=== PATIENT | female | born 1985 | race Caucasian/White ===

== ENCOUNTER 2016-09-03 14:45 | Inpatient (IN) | payer SELFPAY ==
--- NOTE | 2016-09-03 14:55 | ERPHSYRPT ---
- History of Present Illness Time Seen by Provider: 09/03/16 14:47 Source: patient, EMS, old records, police Exam Limitations: clinical condition Physician History: patient found along side the road recently after being kicked out of the house by her mother; she smokes and is a known drug abuser; she took a handfull of pills ( Tylenol; Ibuprofen and strips of Suboxone- unknown number ) less then two hours ago; pusle ox good via EMS in route; no change when given narcan; patient awake throughout complaining of abdominal pain; some emesis with small amount of bright red blood; no hx of ulces; remains nauseated and some dry heaves; no loc; states she is suicidal and was trying to kill herself; can't give an exact time of ingestion. Denies being ; also while lying in grass was stung several times by unknown insect; no difficulty breathing or change in voice Timing/Duration: today, hour(s) (1-4 hours ago), sudden, worse Severity of Symptoms-Max: severe Severity of Symptoms-Current: moderate Context related to: parent (mother), living circumstances Suicidal thoughts: attempt, ingestion Associated Symptoms: angry, depressed, hallucinating (possbily ), suicidal ideation (still present) Previous symptoms: different symptoms Allergies/Adverse Reactions: penicillin Allergy (Verified 09/03/16 15:05) Hx Tetanus, Diphtheria Vaccination/Date Given: No Hx Influenza Vaccination/Date Given: No Hx Pneumococcal Vaccination/Date Given: No - Past Medical History Pertinent Past Medical History: Yes Neurological History: Other ENT History: Other (previous corneal abrasions related to contacts) Cardiac History: No Pertinent History Respiratory History: No Pertinent History Endocrine Medical History: No Pertinent History Musculoskeletal History: Other GI Medical History: Hepatitis (C) History: No Pertinent History Psycho-Social History: Depression, Other (poly drug abuse) Female Reproductive Disorders: No Pertinent History Other Medical History: HEP C,MRSA - Past Surgical History Past Surgical History: Yes Neuro Surgical History: No Pertinent History Cardiac: No Pertinent History Respiratory: No Pertinent History Gastrointestinal: No Pertinent History Genitourinary: Other Musculoskeletal: Orthopedic Surgery Female Surgical History: No Pertinent History Other Surgical History: BACK SURG - Social History Smoking Status: Current some day smoker How long have you smoked: 15 Exposure to second hand smoke: Yes Alcohol Use: Socially Drug Use: narcotics Patient Lives Alone: Yes Significant Family History: no pertinent family hx - Female History Hx Last Menstrual Period: 09/03/16 normal Hx Now: No - Review of Systems Constitutional: No Symptoms Eyes: No Symptoms Ears, Nose, & Throat: No Symptoms Respiratory: No Cough, No Dyspnea, No Wheezing Cardiac: No Chest Pain, No Palpitations, No Syncope Abdominal/Gastrointestinal: Abdominal Pain, Nausea, Vomiting, Hematemesis ( small amount today), No Diarrhea, No Constipation, No Melena Genitourinary Symptoms: No Symptoms Musculoskeletal: No Symptoms Skin: Rash (right side - multiple insect bites) Neurological: No Headache, No Seizure, No Vertigo Psychological: Drug Abuse, Depression, Suicidal Ideations Endocrine: No Symptoms Hematologic/Lymphatic: No Symptoms Immunological/Allergic: No Symptoms - Nursing Vital Signs Nursing Vital Signs: Initial Vital Signs Temperature 98.3 F 09/03/16 14:46 Pulse Rate 106 H 09/03/16 14:46 Respiratory Rate 16 09/03/16 14:46 Blood Pressure 140/76 09/03/16 14:46 O2 Sat by Pulse Oximetry 95 09/03/16 14:46 Pain Scale Pain Intensity 7 - Physical Exam General Appearance: moderate distress (abd pain with Nausea and dry heaves; ), anxiety, thin Eyes, Ears, Nose, Throat Exam: normal ENT inspection, TMs normal, pharynx normal , moist mucous membranes, other (normal voice) Neck Exam: normal inspection, non-tender, supple, full range of motion, No Kernig's, No meningismus, No JVD Respiratory Exam: normal breath sounds, lungs clear, airway intact, No chest tenderness, No respiratory distress, No rhonchi, No wheezing, No stridor Cardiovascular Exam: regular rate/rhythm, normal heart sounds, normal peripheral pulses, tachycardia, capillary refill <2 sec, No murmur Gastrointestinal/Abdominal Exam: soft, tenderness (mild epigastic), No normal bowel sounds (slightly hypeactive), No distention, No mass, No guarding, No pulsatile mass, No rebound, No organomegaly Extremities Exam: normal inspection, normal range of motion, evidence of injury (mild scattered old small bruises lower legs), No tenderness Peripheral Pulses: carotid (R): 4+, carotid (L): 4+, femoral (R): 4+, femoral (L ): 4+, dorsalis-pedis (R): 3+, dorsalis-pedis (L): 3+ Current Suicidality: other (over dosed on purpose) Neurological Exam: alert, database modeler II-XII nml as tested, oriented x 3, responds to pain, agitated, depressed affect Appearance: no memory impairment, disheveled, impaired insight Behavior/Eye Contact/Speech: alert & cooperative, normal speech, avoids eye contact, agitated, No good eye contact Thoughts/Hallucinations: no apparent hallucination Skin Exam: normal color, warm, dry, ecchymosis (old small numerous lower extremities), other (multiple insect bites right side and flank with local reactions only (6-8)), No rash, No petechiae, No cyanosis SpO2 Interpretation: normal SpO2: 98 Oxygen Delivery: Room Air - Course Nursing assessment & vital signs reviewed: Yes EKG Interpreted by Me: RATE (114), Sinus Tach, NORMAL AXIS, NORMAL INTERVALS, NORMAL QRS, NORMAL ST-T, Non-specific ST Changes Rhythm Strip: Rate (112), Sinus Tachycardia Ordered Tests: Active Orders 24 hr Category Date Time Status Up With Assistance ROUTINE Activity 09/03/16 15:58 Ordered Accucheck STAT Care 09/03/16 14:47 Active Admission/Status Order ROUTINE Care 09/03/16 15:58 Ordered Call Admit Doctor for Orders ON ADMISSION Care 09/03/16 15:59 Ordered Autopsy Pathologist STAT Care 09/03/16 14:47 Active Catheter-Alexandria Ashby STAT Care 09/03/16 14:57 Active Code Status Order ROUTINE Care 09/03/16 15:58 Ordered Consult Telemental Health ROUTINE Care 09/03/16 16:00 Ordered EKG-ER Only STAT Care 09/03/16 14:47 Active Fall Protocol ROUTINE Care 09/03/16 16:00 Ordered Gastric Tube Ins w/ Lavage STAT Care 09/03/16 14:49 Active IV Care Q6H Care 09/03/16 15:58 Ordered IV Insertion STAT Care 09/03/16 14:47 Active Neuro Checks Q2H Care 09/03/16 15:58 Ordered Psychiatric Evaluation STAT Care 09/03/16 14:47 Active Re-Check Vital Signs STAT Care 09/03/16 14:47 Active Bahman Hose, Apply ROUTINE Care 09/03/16 15:58 Ordered Telemetry ROUTINE Care 09/03/16 15:58 Ordered Weight,Daily 0600 Care 09/03/16 15:58 Ordered NPO Diet 09/03/16 15:59 Ordered ACETAMINOPHEN Stat Lab 09/03/16 14:50 Completed ACETAMINOPHEN Stat Lab 09/03/16 16:40 Ordered ACETAMINOPHEN Stat Lab 09/03/16 18:40 Ordered AMYLASE Stat Lab 09/03/16 14:50 Completed CBC W DIFF Stat Lab 09/03/16 14:50 Completed CMP Stat Lab 09/03/16 14:50 Completed ETHYL ALCOHOL Stat Lab 09/03/16 14:50 Completed HCG QUALITATIVE,SERUM Stat Lab 09/03/16 14:50 Completed LIPASE Stat Lab 09/03/16 14:50 Completed MAGNESIUM Stat Lab 09/03/16 14:50 Completed PROTIME WITH INR Stat Lab 09/03/16 14:50 Completed PTT Stat Lab 09/03/16 15:21 Completed SALICYLATE Stat Lab 09/03/16 14:50 Completed SALICYLATE Stat Lab 09/03/16 16:40 Ordered SALICYLATE Stat Lab 09/03/16 18:40 Ordered UA W/RFX UR CULTURE Stat Lab 09/03/16 14:47 Ordered Urine Triage Profile Stat Lab 09/03/16 14:47 Ordered Transfer Order Routine Transfer 09/03/16 15:57 Ordered Medication Summary Generic Name Dose Route Start Last Admin Trade Name Freq PRN Reason Stop Dose Admin Sodium Chloride 1,000 mls @ 100 mls/hr 09/03/16 15:00 09/03/16 15:00 Sodium Chloride 0.9% 1000 Ml IV 10/03/16 14:59 100 mls/hr .Q10H SHUKRI Administration Discontinued Medications Generic Name Dose Route Start Last Admin Trade Name Freq PRN Reason Stop Dose Admin Famotidine 20 mg 09/03/16 14:57 09/03/16 15:02 Pepcid 20 Mg Vial IV 09/03/16 14:58 20 mg STAT ONE Administration Famotidine Confirm 09/03/16 15:01 Pepcid 20 Mg Vial Administered 09/03/16 15:02 Dose 20 mg IV .STK-MED ONE Lidocaine HCl Confirm 09/03/16 15:13 Xylocaine 2% Uro-Jet Administered 09/03/16 15:14 Dose 200 mg .ROUTE .STK-MED ONE Ondansetron HCl 4 mg 09/03/16 14:58 09/03/16 15:02 Zofran 4 Mg/2 Ml Vial IV 09/03/16 14:59 4 mg STAT ONE Administration Ondansetron HCl Confirm 09/03/16 15:01 Zofran 4 Mg/2 Ml Vial Administered 09/03/16 15:02 Dose 4 mg .ROUTE .STK-MED ONE Lab/Rad Data: Laboratory Result Diagrams 09/03/16 14:50 09/03/16 14:50 Laboratory Results 09/03/16 09/03/16 09/03/16 Range/Units 15:30 15:21 14:50 WBC (4.0-10.5) K/mm3 RBC (4.1-5.4) M/mm3 Hgb (12.0-16.0) gm/dl Hct (35-47) % MCV (78-100) fl MCH (26-32) pg MCHC (32-36) g/dl RDW (11.5-14.0) % Plt Count (150-450) K/mm3 MPV (6-9.5) fl Gran % (36.0-66.0) % Lymphocytes % (24.0-44.0) % Monocytes % (0.0-12.0) % Eosinophils % (0.00-5.0) % Basophils % (0.0-0.4) % Basophils # (0-0.4) INR 1.04 (0.8-3.0) APTT 36.2 (25.3-37.0) SECONDS Sodium (136-145) mEq/L Potassium (3.5-5.1) mEq/L Chloride (98-107) mEq/L Carbon Dioxide (21-32) mEq/L Anion Gap (5-15) MEQ/L BUN (9-20) mg/dL Creatinine (0.55-1.30) mg/dl Estimated GFR ML/MIN Glucose (70-110) MG/DL Calcium (8.5-10.1) mg/dL Magnesium (1.8-2.4) mg/dL Total Bilirubin (0.2-1.0) mg/dL AST (15-37) U/L ALT (12-78) U/L Alkaline Phosphatase (46-116) U/L Serum Total Protein (6.4-8.2) gm/dL Albumin (3.4-5.0) g/dL Amylase (25-115) U/L Lipase (73-393) U/L Serum , Qual (Negative) Salicylates (2.8-20.0) mg/dl Urine Opiates Level NEG. (NEGATIVE) Ur Methadone NEG. (NEGATIVE) Acetaminophen (10-30) ug/ml Urine Barbiturates NEG. (NEGATIVE) Ur Phencyclidine (PCP) NEG. (NEGATIVE) Urine Amphetamine POS. (NEGATIVE) U Benzodiazepine Level NEG. (NEGATIVE) Urine Cocaine NEG. (NEGATIVE) Urine Marijuana (THC) NEG. (NEGATIVE) Ethyl Alcohol (0.00-0.01) % 09/03/16 09/03/16 09/03/16 Range/Units 14:50 14:50 14:50 WBC 8.5 (4.0-10.5) K/mm3 RBC 4.23 (4.1-5.4) M/mm3 Hgb 14.0 (12.0-16.0) gm/dl Hct 41.8 (35-47) % MCV 98.8 (78-100) fl MCH 33.1 H (26-32) pg MCHC 33.5 (32-36) g/dl RDW 12.9 (11.5-14.0) % Plt Count 258 (150-450) K/mm3 MPV 11.2 H (6-9.5) fl Gran % 64.4 (36.0-66.0) % Lymphocytes % 27.0 (24.0-44.0) % Monocytes % 7.4 (0.0-12.0) % Eosinophils % 1.1 (0.00-5.0) % Basophils % 0.1 (0.0-0.4) % Basophils # 0.01 (0-0.4) INR (0.8-3.0) APTT (25.3-37.0) SECONDS Sodium 141 (136-145) mEq/L Potassium 4.0 (3.5-5.1) mEq/L Chloride 105 (98-107) mEq/L Carbon Dioxide 24.8 (21-32) mEq/L Anion Gap 15.4 H (5-15) MEQ/L BUN 13 (9-20) mg/dL Creatinine 0.93 (0.55-1.30) mg/dl Estimated GFR > 60 ML/MIN Glucose 118 H (70-110) MG/DL Calcium 9.2 (8.5-10.1) mg/dL Magnesium 2.0 (1.8-2.4) mg/dL Total Bilirubin 0.60 (0.2-1.0) mg/dL AST 36 (15-37) U/L ALT 54 (12-78) U/L Alkaline Phosphatase 65 (46-116) U/L Serum Total Protein 7.8 (6.4-8.2) gm/dL Albumin 4.0 (3.4-5.0) g/dL Amylase 49 (25-115) U/L Lipase 83 (73-393) U/L Serum , Qual NEGATIVE (Negative) Salicylates 4.2 (2.8-20.0) mg/dl Urine Opiates Level (NEGATIVE) Ur Methadone (NEGATIVE) Acetaminophen 36.8 H (10-30) ug/ml Urine Barbiturates (NEGATIVE) Ur Phencyclidine (PCP) (NEGATIVE) Urine Amphetamine (NEGATIVE) U Benzodiazepine Level (NEGATIVE) Urine Cocaine (NEGATIVE) Urine Marijuana (THC) (NEGATIVE) Ethyl Alcohol < 0.010 (0.00-0.01) % reviewed - Progress Progress: improved (post meds), re-examined (after meds, cath and n/g) Progress Note: 09/03/16 15:06 IV started; VS monitored; ashby anchored; blood drawn; meds given; EKG sinus tach; labs pending; suicide precautions; given anti emetics and H2 blockers; will contact LMD for disposition and possible Psyche consult; labs pending; tox screen pending 09/03/16 15:39 patient N&V resolved; abd pain resolved; VS improving; patient more calm and cooperative; unable to pass and NG; some epistaxis resolved with ice and pressure; last emesis before NG was clear and no gross blood; pulse ox ok clotting studies ok; renal function ok; mikki and lip ok; Actmn level elevated at 36.8 but unsure of ingestion time so will repeat Acetmn and Salic levels in two and four hours to see if need treatmetn; ETOH neg; HCG and ua pending; Will consult LMD for disposition; 09/03/16 15:53 Dr Canseco consulted and will admit to ICU ; a Psyche consult will be obtained and Salic and Acetom levels will be repeated and determine if need treatment.VS improved; HCG negative Discussed with : Micaela (consulted adn will admit) Counseled pt/family regarding: drug and/or alcohol abuse, lab results, diagnosis , need for follow-up, smoking cessation - Departure Time of Disposition: 15:55 Departure Disposition: In-patient Admission (ICU) Clinical Impression: Suicidal overdose, Hepatitis C, Abdominal pain, Insect bite, Acetaminophen overdose Clinical Impression: (Ruled Out): Poisoning, acetophenetidin Condition: Serious Critical Care Time: Yes Critical Care Time(excluding separately billable procedures): 30-74 minutes Referrals: ESTER HONEYCUTT [Primary Care Provider] - FATOU CANSECO [ACTIVE STAFF] -
[2016-09-03] MEDS ORDERED: Pepcid 20 MG VIAL IV ONE ×2 (14:57→15:01)
[2016-09-03] MEDS ORDERED: Zofran 4 MG/2 ML VIAL IV ONE (14:58)
[2016-09-03] MEDS: Sodium Chloride 0.9% 1000 ML 1,000 ML IV SCH (15:00)
[2016-09-03] MEDS ORDERED: Zofran 4 MG/2 ML VIAL ONE (15:01)
[2016-09-03 15:03] LABS: BASOPHIL % 0.1 % (0.0-0.4); Eosinophil % 1.1 % (0.00-5.0); Granulocytes % 64.4 % (36.0-66.0); Mean Cell Volume 98.8 fl (78-100); Mean Corpuscular Hemoglobin 33.1 pg (26-32); Mean Platelet Volume 11.2 fl (6-9.5); Monocytes % 7.4 % (0.0-12.0); Platelet Count 258 K/mm3 (150-450); Red Blood Count 4.23 M/mm3 (4.1-5.4); Red Cell Distribution Width 12.9 % (11.5-14.0); White Blood Count 8.5 K/mm3 (4.0-10.5)
[2016-09-03] MEDS ORDERED: XYLOCAINE 2% Uro-Jet ONE (15:13)
[2016-09-03 15:25] LABS: INR 1.04 (0.8-3.0); PROTIME 11.7 SECONDS (9.95-12.35)
[2016-09-03 15:33] LABS: ALKALINE PHOSPHATASE 65 U/L (46-116); ANION GAP 15.4 MEQ/L (5-15); BLOOD UREA NITROGEN 13 mg/dL (9-20); CHLORIDE 105 mEq/L (98-107); Carbon Dioxide 24.8 mEq/L (21-32); ETHYL ALCOHOL < 0.010 % (0.00-0.01); Glucose 118 MG/DL (70-110); LIPASE 83 U/L (73-393); SGOT/AST 36 U/L (15-37); SGPT/ALT 54 U/L (12-78); SODIUM 141 mEq/L (136-145); Total Protein 7.8 gm/dL (6.4-8.2)
[2016-09-03 15:34] LABS: ACETAMINOPHEN 36.8 ug/ml (10-30)
[2016-09-03 16:22] LABS: Bilirubin SMALL (NEGATIVE); COMPLETE URINE MICROSCOPIC? YES; Collection Type VOID; Glucose NEGATIVE (NEGATIVE); Leukocyte Esterase TRACE (NEGATIVE); Mucus MODERATE /HPF (NEGATIVE)
[2016-09-03 16:23] LABS: ADD URINE CULTURE? YES (NO); Bacteria MANY /HPF (NEGATIVE); Epithelial Cells FEW /HPF (FEW)
[2016-09-03] MEDS ORDERED: DEXTROSE IV ONE ×2 (19:25→20:30)
[2016-09-03] MEDS ORDERED: ACETADOTE IV ONE ×2 (19:25→20:30)
[2016-09-03] MEDS ORDERED: WATER IV ONE ×2 (19:25→20:30)
[2016-09-03] MEDS ORDERED: Acetadote IV 200 MG/ML*** 0 MG in Dextrose 5%/Water IV Soln. 250 ML 250 ML IV ONE (19:25)
[2016-09-03] MEDS ORDERED: Dextrose 5%/Water IV Soln. 250 ML 250 ML IV ONE (19:26)
[2016-09-03] MEDS ORDERED: Acetadote IV 200 MG/ML IV ONE (19:27)
[2016-09-03] MEDS ORDERED: Dextrose 5%/Water IV Soln. 500 ML 500 ML IV ONE (19:28)
[2016-09-03] MEDS ORDERED: Dextrose 5%/Water IV Soln. 1000 ML 1,000 ML IV ONE (22:46)
[2016-09-04] MEDS ORDERED: DEXTROSE IV ONE (00:30)
[2016-09-04] MEDS ORDERED: WATER IV ONE (00:30)
[2016-09-04] MEDS ORDERED: ACETADOTE IV ONE (00:30)
[2016-09-04] MEDS: Sodium Chloride 0.9% 1000 ML 1,000 ML IV SCH ×2 (01:35→11:44)
[2016-09-04 07:29] LABS: Mean Cell Volume 100.3 fl (78-100); Mean Platelet Volume 11.1 fl (6-9.5); Platelet Count 177 K/mm3 (150-450); Red Blood Count 3.81 M/mm3 (4.1-5.4); White Blood Count 5.3 K/mm3 (4.0-10.5)
[2016-09-04 07:35] LABS: Mean Corpuscular Hemoglobin 33.5 pg (26-32)
--- NOTE | 2016-09-04 07:38 | HP ---
CHIEF COMPLAINT: Overdose of Tylenol and Suboxone. HISTORY OF PRESENT ILLNESS: The patient is a 31 year-old white female who apparently had gotten into an argument with her mother. She had gotten kicked out of her house. She is a known abuser of medications. She reports that she took a handful of Tylenol, ibuprofen and Suboxone. She reports the Suboxone belonged to somebody else but she was able to get a hold of them and took several of them as she wished to do herself harm. The patient was actually found along the side of a road and was brought in by EMS. She was given Narcan which was not much helpful initially in the emergency room. The patient was found to have elevated levels of Tylenol in her system and was brought into the hospital emergency room and subsequently admitted to the hospital for suicide watch and treatment of suspected Tylenol overdose. PAST MEDICAL/SURGICAL HISTORY: Otherwise significant for hepatitis C, depression. She reports that she had been seeing people at [facility] for a year previously but is not following them presently. She has history of back surgery and methicillin resistant staphylococcus aureus infections. She abuses narcotics. She smokes as well. PHYSICAL EXAMINATION: Reveals a thin, white female currently in no obvious distress and cooperative to examination and lucid at the present time. Also reporting that she currently does not feel like doing herself any harm. Her initial vital signs showed temperature 98.3F, pulse 106, respiratory rate 16, blood pressure 140/76. O2 saturations 95% on room air. HEENT: Normocephalic, atraumatic. Pupils equal round reactive to light. Extraocular movements intact. Oropharynx is dry. NECK: Supple without lymphadenopathy, thyromegaly or JVD. CHEST: Clear to auscultation with good air movement bilaterally. HEART: Regular rate and rhythm without murmurs, rubs or gallops. ABDOMEN: Soft, nontender, nondistended without hepatosplenomegaly or masses. EXTREMITIES: Without cyanosis, clubbing or edema. She does have IV's in both arms presently with the left more puffy and red. NEUROLOGIC: The patient is alert and oriented x3 and cooperative to exam. LAB DATA AND TESTS: In the emergency room showed international normalized ratio of 1.04. Metabolic panel with glucose 118, BUN 13, creatinine 0.93. Electrolytes were normal. Liver enzymes were normal. Acetaminophen level was 36.8 which is already above our laboratory values with therapeutic from 10 to 30. However it is unknown how long ago the patient had taken the Tylenol. Salicylate level is 4.2. ETOH negative. CBC was normal with hemoglobin 14.0, white blood cell count 8,500, PLT count 258,000. Urine drug screen was positive for amphetamines and negative for everything else. Urine HCG was negative. ASSESSMENT: A patient with polydrug overdose with acetaminophen, Suboxone and ibuprofen. She admitted drug abuse. The patient has been admitted for treatment of Tylenol overdose with the current protocol. She will be treated for the next 24 hours. She is not currently under emergency correction order but I am willing to sign off on that if she has any inclination of wanting to leave [facility]ENTER. The patient will have [facility] consultation prior to disposition of either going home or being admitted to inpatient facility once we are done with the protocol for overdose of acetaminophen. We will be monitoring her liver enzymes over the next 24 hours as well.
[2016-09-04 07:49] LABS: ALBUMIN 2.9 g/dL (3.4-5.0); ALKALINE PHOSPHATASE 48 U/L (46-116); ANION GAP 13.4 MEQ/L (5-15); BLOOD UREA NITROGEN 5 mg/dL (9-20); CHLORIDE 109 mEq/L (98-107); Carbon Dioxide 22.5 mEq/L (21-32); Glucose 100 MG/DL (70-110); Potassium 3.5 mEq/L (3.5-5.1); SGOT/AST 24 U/L (15-37); SGPT/ALT 22 U/L (12-78); SODIUM 141 mEq/L (136-145); Total Protein 6.1 gm/dL (6.4-8.2)
[2016-09-04 11:16] VITALS: O2SAT 99
[2016-09-04 13:30] LABS: Mean Cell Volume 100.6 fl (78-100); Mean Corpuscular Hemoglobin 33.7 pg (26-32); Mean Platelet Volume 11.6 fl (6-9.5); Platelet Count 184 K/mm3 (150-450); Red Blood Count 3.62 M/mm3 (4.1-5.4); White Blood Count 5.9 K/mm3 (4.0-10.5)
[2016-09-04 13:51] LABS: ALKALINE PHOSPHATASE 53 U/L (46-116); ANION GAP 13.3 MEQ/L (5-15); BLOOD UREA NITROGEN 5 mg/dL (9-20); CHLORIDE 110 mEq/L (98-107); Carbon Dioxide 23.4 mEq/L (21-32); Glucose 151 MG/DL (70-110); Potassium 3.6 mEq/L (3.5-5.1); SGOT/AST 23 U/L (15-37); SGPT/ALT 45 U/L (12-78); SODIUM 143 mEq/L (136-145); Total Protein 6.2 gm/dL (6.4-8.2)
[2016-09-04 13:53] LABS: ACETAMINOPHEN 2.1 ug/ml (10-30)
[2016-09-04 18:18] VITALS: BP 106/71; PULSE 80
== END 2016-09-04 20:25 | disposition home or self-care (01) | DRG 918 ==
LOC: ED 14:45 → ICU 16:45
PROVIDERS: ADMIT Family Medicine; ATTEND Family Medicine
DX: T39.1X1A Poisoning by 4-Aminophenol derivatives, accidental (unintentional), initial encounter (principal); T39.311A Poisoning by propionic acid derivatives, accidental (unintentional), initial encounter; T40.4X1A Poisoning by other synthetic narcotics, accidental (unintentional), initial encounter; F32.9 Major depressive disorder, single episode, unspecified; B19.20 Unspecified viral hepatitis C without hepatic coma
CPT/HCPCS: 36000; 36415; 43753; 51702; 80053; 80307; 81000; 82150; 82962; 83690; 83735; 84703; 85025; 85027; 85610; 85730; 87077; 87086; 87186; 90791; 93005; 93041; 96374; 96375; 99284; G0481; J0132; J2405; Q3014

== ENCOUNTER 2017-08-14 01:15 | Emergency (ER) | payer OTHER ==
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
[2017-08-14] MEDS ORDERED: Vancomycin 1GM/ Ns 250ML*** 250 ML IV ONE (02:07)
[2017-08-14] MEDS ORDERED: Sodium Chloride 0.9% 1000 ML 1,000 ML ONE (02:07)
[2017-08-14 02:47] LABS: BASOPHIL % 0.2 % (0.0-0.4); Basophil (Absolute #) 0.02 (0-0.4); Eosinophil % 1.2 % (0.00-5.0); Eosinophil (Absolute #) 0.11 (0-0.5); Granulocyte Absolute (ANC) 5.82 (1.4-6.9); Granulocytes % 61.3 % (36.0-66.0); Hematocrit 38.3 % (35-47); Hemoglobin 12.9 gm/dl (12.0-16.0); Lymphocyte (Absolute #) 3.01 (1.0-4.6); Lymphocytes % 31.8 % (24.0-44.0); Mean Cell Volume 96.2 fl (78-100); Mean Corpuscular Hemoglobin 32.4 pg (26-32); Mean Corpuscular Hgb Concent. 33.7 g/dl (32-36); Mean Platelet Volume 12.1 fl (6-9.5); Monocyte (Absolute #) 0.52 (0.0-1.3); Monocytes % 5.5 % (0.0-12.0); Platelet Count 201 K/mm3 (150-450); Red Blood Count 3.98 M/mm3 (4.1-5.4); Red Cell Distribution Width 13.7 % (11.5-14.0); White Blood Count 9.5 K/mm3 (4.0-10.5)
[2017-08-14] MEDS: Vancomycin 1GM/ Ns 250ML*** 1 GM/250 ML IVPB IV ONE (02:58)
[2017-08-14] MEDS: Sodium Chloride 0.9% 1000 ML 1,000 ML IV STA (02:58)
[2017-08-14 03:01] LABS: ALBUMIN 4.3 g/dL (3.5-5.0); ALKALINE PHOSPHATASE 85 U/L (38-126); ANION GAP 14.7 MEQ/L (5-15); BLOOD UREA NITROGEN 17 mg/dL (7-17); CHLORIDE 101 mmol/L (98-107); Calcium 9.2 mg/dL (8.4-10.2); Carbon Dioxide 25 mmol/L (22-30); Glucose 81 mg/dL (74-106); Potassium 3.4 mmol/L (3.5-5.1); SGOT/AST 101 U/L (14-36); SGPT/ALT 96 U/L (0-35); SODIUM 137 mmol/L (137-145); Total Protein 7.8 g/dL (6.3-8.2)
[2017-08-14 04:56] VITALS: BP 125/78; PULSE 101; O2SAT 99
== END 2017-08-14 04:55 | disposition home or self-care (01) ==
LOC: ED 01:15
DX: L03.116 Cellulitis of left lower limb (principal); S80.862S Insect bite (nonvenomous), left lower leg, sequela; Z86.14 Personal history of Methicillin resistant Staphylococcus aureus infection; Z86.19 Personal history of other infectious and parasitic diseases; Z72.0 Tobacco use
CPT/HCPCS: 36415; 80053; 83605; 85025; 85379; 87040; 96360; 96365; 96366; 99284; J3370

== ENCOUNTER 2020-11-24 12:59 | Emergency (ER) | payer OTHER ==
[2020-11-24] MEDS ORDERED: Ativan 2 MG/1 ML VIAL ONE (13:05)
[2020-11-24] MEDS ORDERED: Zofran 4 MG/2 ML VIAL ONE (13:07)
[2020-11-24] MEDS ORDERED: Catapres 0.1 MG ONE (13:07)
[2020-11-24] MEDS ORDERED: Ativan 2 MG/1 ML VIAL IV ONE (13:08)
[2020-11-24] MEDS ORDERED: Zofran 4 MG/2 ML VIAL IV ONE (13:09)
[2020-11-24] MEDS ORDERED: Catapres 0.1 MG PO ONE (13:09)
[2020-11-24] MEDS ORDERED: Sodium Chloride 0.9% 1000 ML 1,000 ML IV STA (13:09)
--- NOTE | 2020-11-24 13:15 | ERPHSYRPT ---
- History of Present Illness Time Seen by Provider: 11/24/20 13:10 Exam Limitations: no limitations Physician History: Patient is a 35-year-old female presents to our ED via EMS for evaluation of o piate withdrawal. Per EMS patient injected 8 mg of Suboxone into her left jugular. Patient began began to experience withdrawal symptoms including abdominal cramping nausea vomiting and myalgias. EMS administered 25 mg of Benadryl. This apparently did not help patient. Patient feels nauseous. Patient states she takes 95 mg of methadone daily. Symptoms are mild to moderate in intensity. No specific worsening improving factors. Patient voices no other complaints or concerns at this time. Timing/Duration: today Severity: moderate Modifying Factors: Improves With: nothing Associated Symptoms: nausea, vomiting, No shortness of breath, No fever, No seizure Allergies/Adverse Reactions: penicillin Allergy (Verified 11/24/20 13:01) Home Medications: Clonazepam 0.5 mg [Klonopin 0.5 MG] 0.5 mg PO DAILY PRN 08/14/17 [History] Hx Tetanus, Diphtheria Vaccination/Date Given: No Hx Influenza Vaccination/Date Given: No Hx Pneumococcal Vaccination/Date Given: No - Review of Systems Constitutional: No Symptoms, No Fever, No Chills Eyes: No Symptoms Ears, Nose, & Throat: No Symptoms Respiratory: No Symptoms, No Cough, No Dyspnea Cardiac: No Symptoms, No Chest Pain, No Edema, No Syncope Abdominal/Gastrointestinal: No Symptoms, No Abdominal Pain, No Nausea, No Vomiting, No Diarrhea Genitourinary Symptoms: No Symptoms, No Dysuria Musculoskeletal: No Symptoms, No Back Pain, No Neck Pain Skin: No Symptoms, No Rash Neurological: No Symptoms, No Dizziness, No Focal Weakness, No Sensory Changes Psychological: No Symptoms Endocrine: No Symptoms Hematologic/Lymphatic: No Symptoms Immunological/Allergic: No Symptoms All Other Systems: Reviewed and Negative - Past Medical History Pertinent Past Medical History: Yes Neurological History: Other ENT History: Other Cardiac History: No Pertinent History Respiratory History: No Pertinent History Endocrine Medical History: No Pertinent History Musculoskeletal History: Other GI Medical History: Hepatitis History: No Pertinent History Psycho-Social History: Depression, Other Female Reproductive Disorders: No Pertinent History Other Medical History: HEP C--took treatment and is now gone,MRSA, abcess on ear, cyst on thyroid, kyphoplasty - Past Surgical History Past Surgical History: Yes Neuro Surgical History: No Pertinent History Cardiac: No Pertinent History Respiratory: No Pertinent History Gastrointestinal: No Pertinent History Genitourinary: Other Musculoskeletal: Orthopedic Surgery Female Surgical History: No Pertinent History Other Surgical History: BACK SURG - Social History Smoking Status: Current some day smoker How long have you smoked: 20 yrs Exposure to second hand smoke: Yes Alcohol Use: Socially Drug Use: methamphetamines, narcotics Patient Lives Alone: No Significant Family History: no pertinent family hx - Nursing Vital Signs Nursing Vital Signs: Initial Vital Signs Temperature 96.4 F 11/24/20 13:02 Pulse Rate 94 H 11/24/20 13:02 Respiratory Rate 27 H 11/24/20 13:02 Blood Pressure 142/98 11/24/20 13:02 O2 Sat by Pulse Oximetry 100 11/24/20 13:02 Pain Scale Pain Intensity 0 - Physical Exam General Appearance: no apparent distress, mild distress, alert Eye Exam: PERRL/EOMI, eyes nml inspection, No scleral icterus Ears, Nose, Throat Exam: normal ENT inspection, TMs normal, pharynx normal, moist mucous membranes Neck Exam: normal inspection, non-tender, supple, full range of motion Respiratory Exam: normal breath sounds, lungs clear, airway intact, No respi ratory distress Cardiovascular Exam: regular rate/rhythm, normal heart sounds, normal peripheral pulses Gastrointestinal/Abdomen Exam: soft, normal bowel sounds, No tenderness, No mass Back Exam: normal inspection, normal range of motion, No CVA tenderness, No vertebral tenderness Extremity Exam: normal inspection, normal range of motion, pelvis stable Neurologic Exam: alert, oriented x 3, cooperative, normal mood/affect, sensation nml, No motor deficits Skin Exam: normal color, warm, dry, No rash Lymphatic Exam: No adenopathy SpO2 Interpretation: normal SpO2: 100 O2 Delivery: Room Air - Course Nursing assessment & vital signs reviewed: Yes EKG Interpreted by Me: RATE (90), Sinus Rhythm, NORMAL AXIS, NORMAL INTERVALS Ordered Tests: Active Orders 24 hr Category Date Time Status EKG-ER Only STAT Care 11/24/20 13:09 Active IV Insertion STAT Care 11/24/20 13:09 Active ACETAMINOPHEN Stat Lab 11/24/20 13:27 Completed CBC W DIFF Stat Lab 11/24/20 13:27 Completed CMP Stat Lab 11/24/20 13:27 Completed ETHYL ALCOHOL Stat Lab 11/24/20 13:27 Completed HCG,QUALITATIVE URINE Stat Lab 11/24/20 13:11 Ordered SALICYLATE Stat Lab 11/24/20 13:27 Completed UA W/RFX UR CULTURE Stat Lab 11/24/20 13:11 Ordered Urine Triage Profile Stat Lab 11/24/20 13:11 Ordered Medication Summary Discontinued Medications Generic Name Dose Route Start Last Admin Trade Name Katey PRN Reason Stop Dose Admin Clonidine Confirm 11/24/20 13:07 Clonidine Hcl 0.1 Mg Tablet Administered 11/24/20 13:08 Dose 0 mg .ROUTE .STK-MED ONE Clonidine 0.2 mg 11/24/20 13:09 11/24/20 13:40 Clonidine Hcl 0.1 Mg Tablet PO 11/24/20 13:10 Not Given STAT ONE Sodium Chloride 1,000 mls @ 999 mls/hr 11/24/20 13:09 11/24/20 14:46 Sodium Chloride 0.9% 1000 Ml IV 11/24/20 14:09 Infused .Q1H1M STA Infusion Sodium Chloride Confirm 11/24/20 13:36 Sodium Chloride 0.9% 1000 Ml Administered 11/24/20 13:37 Dose 1,000 mls @ ud .ROUTE .STK-MED ONE Lorazepam Confirm 11/24/20 13:05 Lorazepam 2 Mg/1 Ml 2 Mg Vial Administered 11/24/20 13:06 Dose 2 mg .ROUTE .STK-MED ONE Lorazepam 1 mg 11/24/20 13:08 11/24/20 13:20 Lorazepam 2 Mg/1 Ml 2 Mg Vial IV 11/24/20 13:09 1 mg STAT ONE Administration Methadone HCl 95 mg 11/24/20 13:31 11/24/20 13:40 Methadone Hcl 10 Mg Tab PO 11/24/20 13:32 95 mg ONCE STA Administration Ondansetron HCl Confirm 11/24/20 13:07 Ondansetron Hcl 4 Mg/2 Ml Vial Administered 11/24/20 13:08 Dose 4 mg .ROUTE .STK-MED ONE Ondansetron HCl 4 mg 11/24/20 13:09 11/24/20 13:20 Ondansetron Hcl 4 Mg/2 Ml Vial IV 11/24/20 13:10 4 mg STAT ONE Administration Lab/Rad Data: Laboratory Result Diagrams 11/24/20 13:27 11/24/20 13:27 Laboratory Results 11/24/20 11/24/20 Range/Units 13:27 13:27 WBC 7.4 (4.0-10.5) K/mm3 RBC 4.31 (4.1-5.4) M/mm3 Hgb 15.1 (12.0-16.0) gm/dl Hct 43.9 (35-47) % MCV 101.9 H (78-100) fl MCH 35.0 H (26-32) pg MCHC 34.4 (32-36) g/dl RDW 13.4 (11.5-14.0) % Plt Count 98 L (150-450) K/mm3 MPV 12.9 H (7.5-11.0) fl Gran % 50.4 (36.0-66.0) % Eos # (Auto) 0.11 (0-0.5) Absolute Lymphs (auto) 2.97 (1.0-4.6) Absolute Monos (auto) 0.57 (0.0-1.3) Lymphocytes % 40.3 (24.0-44.0) % Monocytes % 7.7 (0.0-12.0) % Eosinophils % 1.5 (0.00-5.0) % Basophils % 0.1 (0.0-0.4) % Absolute Granulocytes 3.71 (1.4-6.9) Basophils # 0.01 (0-0.4) Sodium 141 (137-145) mmol/L Potassium 3.5 (3.5-5.1) mmol/L Chloride 104 (98-107) mmol/L Carbon Dioxide 20 L (22-30) mmol/L Anion Gap 20.1 H (5-15) MEQ/L BUN 12 (7-17) mg/dL Creatinine 0.67 (0.52-1.04) mg/dL Estimated GFR > 60.0 ML/MIN Glucose 104 (74-106) mg/dL Calcium 9.8 (8.4-10.2) mg/dL Total Bilirubin 0.80 (0.2-1.3) mg/dL AST 114 H (14-36) U/L ALT 129 H (0-35) U/L Alkaline Phosphatase 127 H (38-126) U/L Serum Total Protein 8.8 H (6.3-8.2) g/dL Albumin 4.6 (3.5-5.0) g/dL Salicylates < 1.0 L (2-20) mg/dL Acetaminophen < 10 L (10-30) ug/ml Ethyl Alcohol < 10 (0-10) mg/dL Slides for Path Review E - Progress Progress: improved Progress Note: Patient reassessed. She feels much better. Patient currently asymptomatic. Vital stable. Laboratory work-up essentially unremarkable. Patient ready for discharge. Patient received Ativan Zofran and her usual dose of methadone. IV fluids infused as well. Portions of this note were created with voice recognition technology. There may be grammatical, spelling, punctuation or sound alike errors 11/24/20 15:18 11/24/20 15:22 Patient's father is on her way to pick patient up. She does not want to wait for UA. Will follow up in UA results. If abnormal we will notify patient Will see patient in: hospital (full admit) Counseled pt/family regarding: lab results, diagnosis, need for follow-up - Departure Departure Disposition: Home Clinical Impression: Thrombocytopenia, Transaminitis, Opioid withdrawal Condition: Stable Critical Care Time: No Referrals: ESTER HONEYCUTT NP [Primary Care Provider] - Additional Instructions: Discharge/Care Plan CARLOS FIGUEROA was seen on 11/24/20 in the Emergency Room. The patient was counseled regarding Diagnosis,Lab results, Imaging studies, need for follow up and when to return to the Emergency Room. Prescriptions given: Discharge Note I have spoken with the patient and/or caregivers. I have explained the patient's condition, diagnosis and treatment plan based on the information available to me at this time. I have answered the patient's and/or caregiver's questions and addressed any concerns. The patient and/or caregivers have as good understanding of the patient's diagnosis, condition and treatment plan as can be expected at this point. The vital signs have been stable. The patient's condition is stable and appropriate for discharge from the emergency department. The patient will pursue further outpatient evaluation with the primary care physician or other designated or consulting physician as outlined in the discharge instructions. The patient and/or caregivers are agreeable to this plan of care and follow-up instructions have been explained in detail. The patient and/or caregivers have received these instruction. The patient/and or caregivers are aware that any significant change in condition or worsening of symptoms should prompt an immediate return to this or the closest emergency department or call 911.
[2020-11-24] MEDS ORDERED: DOLOPHINE 10MG Tablet PO STA (13:31)
[2020-11-24 13:36] LABS: Absolute Neutrophil Ct (ANC) 3.71 (1.4-6.9); BASOPHIL % 0.1 % (0.0-0.4); Basophil (Absolute #) 0.01 (0-0.4); Eosinophil % 1.5 % (0.00-5.0); Eosinophil (Absolute #) 0.11 (0-0.5); Hematocrit 43.9 % (35-47); Hemoglobin 15.1 gm/dl (12.0-16.0); Lymphocyte (Absolute #) 2.97 (1.0-4.6); Lymphocytes % 40.3 % (24.0-44.0); Mean Cell Volume 101.9 fl (78-100); Mean Corpuscular Hgb Concent. 34.4 g/dl (32-36); Mean Platelet Volume 12.9 fl (7.5-11.0); Monocyte (Absolute #) 0.57 (0.0-1.3); Monocytes % 7.7 % (0.0-12.0); Neutrophil % 50.4 % (36.0-66.0); Platelet Count 98 K/mm3 (150-450); Red Blood Count 4.31 M/mm3 (4.1-5.4); Red Cell Distribution Width 13.4 % (11.5-14.0); White Blood Count 7.4 K/mm3 (4.0-10.5)
[2020-11-24] MEDS ORDERED: Sodium Chloride 0.9% 1000 ML 1,000 ML ONE (13:36)
[2020-11-24 13:44] LABS: ACETAMINOPHEN < 10 ug/ml (10-30); ALBUMIN 4.6 g/dL (3.5-5.0); ALKALINE PHOSPHATASE 127 U/L (38-126); ANION GAP 20.1 MEQ/L (5-15); BLOOD UREA NITROGEN 12 mg/dL (7-17); CHLORIDE 104 mmol/L (98-107); Calcium 9.8 mg/dL (8.4-10.2); Carbon Dioxide 20 mmol/L (22-30); Creatinine 1 0.67 mg/dL (0.52-1.04); EST GLOMERULAR FILTRATION RATE > 60.0 ML/MIN; ETHYL ALCOHOL < 10 mg/dL (0-10); Glucose 104 mg/dL (74-106); Potassium 3.5 mmol/L (3.5-5.1); SALICYLATE < 1.0 mg/dL (2-20); SGOT/AST 114 U/L (14-36); SGPT/ALT 129 U/L (0-35); SODIUM 141 mmol/L (137-145); Total Protein 8.8 g/dL (6.3-8.2)
[2020-11-24 15:10] LABS: Slide Review 1 E
[2020-11-24 15:13] VITALS: BP 104/66; PULSE 90
[2020-11-24 15:20] VITALS: O2SAT 100
[2020-11-24 15:30] LABS: Appearance SLIGHTLY CLOUDY (CLEAR); Bilirubin NEGATIVE (NEGATIVE); Blood NEGATIVE Ery/ul (0-5); Glucose NEGATIVE (NEGATIVE); Ketones NEGATIVE (NEGATIVE); Leukocyte Esterase NEGATIVE (NEGATIVE); Mucus SLIGHT /HPF (NEGATIVE); Nitrite NEGATIVE (NEGATIVE); Protein,Urine Dip 30 (Negative); Urobilinogen 2 mg/dL (0-1); WBC 0-2 /HPF (0-5)
[2020-11-24 16:01] LABS: Amphetamine,Urine NEGATIVE (NEGATIVE); Barbiturate,Urine NEGATIVE (NEGATIVE); Benzodiazepine,Urine NEGATIVE (NEGATIVE); Cocaine,Urine NEGATIVE (NEGATIVE); Methadone,Urine POSITIVE (NEGATIVE); Opiate,Urine NEGATIVE (NEGATIVE); PCP,Urine NEGATIVE (NEGATIVE); THC,Urine NEGATIVE (NEGATIVE)
== END 2020-11-24 15:34 | disposition home or self-care (01) ==
LOC: ED 12:59
DX: D69.6 Thrombocytopenia, unspecified (principal); R94.5 Abnormal results of liver function studies; F11.23 Opioid dependence with withdrawal
CPT/HCPCS: 36000; 36415; 80053; 80307; 81001; 84703; 85025; 93005; 96360; 96374; 96375; 99284; G0480; J2060; J2405; A9270-GY